=== PATIENT | male | born 1990 | race American Indian/Alaskan Native ===

== ENCOUNTER 2016-09-20 12:43 | Emergency (ER) | payer SELFPAY ==
[2016-09-20 13:04] VITALS: BP 122/77
[2016-09-20] MEDS: MOTRIN PO ONE (14:18)
--- NOTE | 2016-09-20 18:48 | Emergency Department Report ---
Entered by PATRICIA NAPIER, acting as scribe for LENA KEITH NP. ED ENT HPI - General Chief complaint: Dental/Oral Stated complaint: TOOTHACHE /FACE SWOLLEN Time Seen by Provider: 09/20/16 13:19 Source: patient Mode of arrival: Ambulatory Limitations: No Limitations - History of Present Illness Initial comments: This is a 25 y/o male, nontoxic, well nourished in appearance, no acute signs of distress presents with toothache that began 3 days ago and became worse today. Associated symptoms include pain and slight swelling to left facial area and toothaches but he denies neck pain, fever, headache, stiff neck, n/v, CP, SOB, and chills. Pain is described as constant and 7/10 on a severity scale. Denies taking any OTC meds. No alleviating or aggravating factors. Allergic to sulfamethoxazole and trimethoprim. MD complaint: tooth pain Onset/Timin -: days(s) Location: L ear Severity: moderate Severity scale (0 -10): 7 Consistency: constant Improves with: none Worsens with: none Context- Dental: history of dental caries, other (broken tooth) Associated Symptoms: toothache, other (left side facial swelling and pain, no neck pain, no fever, no chills). denies: fever, cough, gum swelling, pain with swallowing, sore throat, tinnitus, hearing loss, discharge from ear, rhinorrhea - Related Data Previous Rx's Medication Instructions Recorded Last Taken Type Amoxicillin/K Clav Tab [Augmentin 1 tab PO Q12HR 10 Days 09/20/16 Unknown Rx 875 mg] Ibuprofen [Motrin 800 MG tab] 800 mg PO Q8HR PRN #20 tablet 09/20/16 Unknown Rx Allergies Allergy/AdvReac Type Severity Reaction Status Date / Time sulfamethoxazole Allergy Unknown Verified 09/20/16 13:04 [From ] trimethoprim [From ] Allergy Unknown Verified 09/20/16 13:04 ED Dental HPI - General Chief complaint: Dental/Oral Stated complaint: TOOTHACHE /FACE SWOLLEN Time Seen by Provider: 09/20/16 13:08 Source: patient Mode of arrival: Ambulatory Limitations: No Limitations - History of Present Illness MD complaint: tooth pain Onset/Timin -: days(s) Severity: moderate Consistency: constant Improves with: none Worsens with: none Context- Dental: other (broken tooth) Dental Associated Symptons: Yes: Earache - Related Data Previous Rx's Medication Instructions Recorded Last Taken Type Amoxicillin/K Clav Tab [Augmentin 1 tab PO Q12HR 10 Days 09/20/16 Unknown Rx 875 mg] Ibuprofen [Motrin 800 MG tab] 800 mg PO Q8HR PRN #20 tablet 09/20/16 Unknown Rx Allergies Allergy/AdvReac Type Severity Reaction Status Date / Time sulfamethoxazole Allergy Unknown Verified 09/20/16 13:04 [From ] trimethoprim [From ] Allergy Unknown Verified 09/20/16 13:04 ED Review of Systems Comment: All other systems reviewed and negative Constitutional: denies: chills, fever Eyes: denies: eye pain, eye discharge, vision change ENT: dental pain. denies: ear pain, throat pain, hearing loss, epistaxis, congestion Respiratory: denies: cough, shortness of breath, wheezing Cardiovascular: denies: chest pain, palpitations Endocrine: no symptoms reported Musculoskeletal: denies: other (neck pain) Skin: other (Swelling to left facial area ) ED Past Medical Hx - Past Medical History Previous Medical History?: No - Surgical History Past Surgical History?: No - Social History Smoking Status: Never Smoker Substance Use Type: None - Medications Home Medications: Home Medications Medication Instructions Recorded Confirmed Last Taken Type Amoxicillin/K Clav Tab [Augmentin 1 tab PO Q12HR 10 Days 09/20/16 Unknown Rx 875 mg] Ibuprofen [Motrin 800 MG tab] 800 mg PO Q8HR PRN #20 tablet 09/20/16 Unknown Rx ED Physical Exam - General Limitations: No Limitations General appearance: alert, in no apparent distress - Head Head exam: Present: atraumatic, normocephalic, normal inspection - Eye Eye exam: Present: normal appearance, PERRL, EOMI. Absent: scleral icterus, conjunctival injection, nystagmus, periorbital swelling, periorbital tenderness Pupils: Present: normal accommodation - ENT ENT exam: Present: normal exam, normal orophraynx, mucous membranes moist, TM's normal bilaterally, normal external ear exam - Expanded ENT Exam Expanded Mouth exam: Present: normal external inspection, tongue normal. Absent: drooling, trismus, muffled voice, tongue elevation, laceration Teeth exam: Present: dental caries (12), fractured tooth # (12), dental tenderness #, gingival enlargement. Absent: other (no pus, no drainage, no swelling, no abscess) 1 - Fractured Throat exam: Positive: normal inspection. Negative: tonsillar erythema, tonsillomegaly, tonsillar exudate, R peritonsillar mass, L peritonsillar mass - Neck Neck exam: Present: normal inspection, full ROM. Absent: tenderness, meningismus, lymphadenopathy, thyromegaly - Respiratory Respiratory exam: Present: normal lung sounds bilaterally. Absent: respiratory distress, wheezes, rales, rhonchi, stridor, chest wall tenderness, accessory muscle use, decreased breath sounds, prolonged expiratory - Cardiovascular Cardiovascular Exam: Present: regular rate, normal rhythm, normal heart sounds. Absent: bradycardia, tachycardia, irregular rhythm, systolic murmur, diastolic murmur, rubs, gallop - GI/Abdominal GI/Abdominal exam: Present: soft, normal bowel sounds. Absent: distended, tenderness, guarding, rebound, rigid, diminished bowel sounds - Rectal Rectal exam: Present: deferred - Extremities Exam Extremities exam: Present: normal inspection, full ROM, normal capillary refill. Absent: tenderness, pedal edema, joint swelling, calf tenderness - Back Exam Back exam: Present: normal inspection, full ROM. Absent: tenderness, CVA tenderness (R), CVA tenderness (L), muscle spasm, paraspinal tenderness, vertebral tenderness, rash noted - Neurological Exam Neurological exam: Present: alert, oriented X3, CN II-XII intact, normal gait - Psychiatric Psychiatric exam: Present: normal affect, normal mood - Skin Skin exam: Present: warm, dry, intact, normal color. Absent: rash ED Course Vital Signs 09/20/16 13:00 Temperature 99.2 F Pulse Rate 85 Respiratory 17 Rate Blood Pressure 122/77 O2 Sat by Pulse 99 Oximetry ED Medical Decision Making - Medical Decision Making Ed course: This is a 25-year-old male that presents with dental caries and gingivitis. 1- after my physical exam, patient received Augmentin 875 mg for 10 days and was instructed to follow-up with a dentist in 24 hours. 2- at time time of discharge, the patient does not seem toxic or ill in appearance. No acute signs of distress noted. Patient agrees to discharge treatment plan of care. No further questions noted by the patient. ED Disposition Clinical Impression: Dental caries, Gingivitis Disposition: DC- TO HOME OR SELFCARE Is pt being admited?: No Does the pt Need Aspirin: No Condition: Stable Instructions: Dental Caries (ED), Gingivitis (ED), Amoxicillin/Clavulanate Potassium (By mouth), Ibuprofen (By mouth) Additional Instructions: Take full course of antibiotics as prescribed. Follow-up with a dentist in 24 hours. Prescriptions: Amoxicillin/K Clav Tab [Augmentin 875 mg] 1 tab PO Q12HR 10 Days Ibuprofen [Motrin 800 MG tab] 800 mg PO Q8HR PRN #20 tablet PRN Reason: Pain Referrals: PRIMARY CARE,MD [Primary Care Provider] - 3-5 Days [facility] [Outside] - 3-5 Days [facility] [Outside] - 24 Hours Forms: Work/School Release Form(ED) This documentation as recorded by the KARTHIKEYAN lozano ELIZABETH,accurately reflects the service I personally performed and the decisions made by ,LENA KEITH, KELSIE.
== END 2016-09-20 14:24 | disposition home or self-care (01) ==
LOC: ED 12:43
DX: K02.9 Dental caries, unspecified (principal); K05.10 Chronic gingivitis, plaque induced
CPT/HCPCS: 99282

== ENCOUNTER 2016-10-03 17:35 | Emergency (ER) | payer SELFPAY ==
--- NOTE | 2016-10-03 19:39 | XRay Report ---
FINAL REPORT PROCEDURE: XR CHEST ROUTINE 2V TECHNIQUE: PA and lateral chest radiographs were obtained. CPT 40888 HISTORY: Chest pain. Cough. Shortness of breath. COMPARISON: No prior studies are available for comparison. FINDINGS: Heart: Normal. Mediastinum/Vessels: Normal. Lungs/Pleural space: Normal. Bony thorax: No acute osseous abnormality. Other: IMPRESSION: No radiographic evidence of acute cardiopulmonary disease.
--- NOTE | 2016-10-03 22:57 | Emergency Department Report ---
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 denies: fever, chills, myalgias, diaphoresis, headache, rhinorrhea, nasal congestion, sore throat, stiff neck, shortness of breath, abdominal pain, nausea, vomiting, diarrhea, dysuria, rash, confusion, right sweats, weight loss, epistaxis Treatments Prior to Arrival: none - Related Data Home Medications Medication Instructions Recorded Confirmed Last Taken No Known Home Medications [No 10/03/16 10/03/16 Unknown Reported Home Medications] Allergies Allergy/AdvReac Type Severity Reaction Status Date / Time sulfamethoxazole Allergy Unknown Verified 10/03/16 17:54 [From ] trimethoprim [From ] Allergy Unknown Verified 10/03/16 17:54 ED Review of Systems ROS: Stated complaint: CHEST PAIN AND DRY COUGH Other details as noted in HPI Comment: All other systems reviewed and negative Constitutional: no symptoms reported, see HPI Eyes: as per HPI. denies: eye pain ENT: as per HPI. denies: ear pain, throat pain Respiratory: no symptoms reported, see HPI, cough. denies: orthopnea Cardiovascular: as per HPI, chest pain (w cough). denies: palpitations, dyspnea on exertion, orthopnea Endocrine: no symptoms reported, see HPI Gastrointestinal: as per HPI. denies: abdominal pain, nausea, vomiting Genitourinary: as per HPI. denies: urgency, dysuria Musculoskeletal: as per HPI. denies: back pain Skin: as per HPI. denies: rash, lesions Neurological: as per HPI. denies: headache, weakness, vertigo Psychiatric: as per HPI, anxiety (concerned about cough bc he had pna in the past). denies: depression, auditory hallucinations, visual hallucinations, homicidal thoughts, suicidal thoughts Hematological/Lymphatic: as per HPI. denies: easy bleeding ED Past Medical Hx - Past Medical History Previous Medical History?: No Additional medical history: pna years ago. no other med prob. no meds. no cig /etho or drugs. mom and dad a/w - Surgical History Past Surgical History?: No - Social History Smoking Status: Never Smoker Substance Use Type: None - Medications Home Medications: Home Medications Medication Instructions Recorded Confirmed Last Taken Type No Known Home Medications [No 10/03/16 10/03/16 Unknown History Reported Home Medications] ED Physical Exam - General Limitations: No Limitations General appearance: alert, in no apparent distress, anxious (about cough) - Head Head exam: Present: atraumatic - Eye Eye exam: Present: normal appearance, PERRL - ENT ENT exam: Present: normal exam, mucous membranes moist. Absent: normal orophraynx (post nasal drip), mucous membranes dry, TM's normal bilaterally ( red b, no buldging retraction or effusion, no ear pain) - Neck Neck exam: Present: normal inspection. Absent: tenderness, meningismus - Respiratory Respiratory exam: Present: normal lung sounds bilaterally. Absent: respiratory distress, wheezes, rales, rhonchi, stridor - Cardiovascular Cardiovascular Exam: Present: regular rate, normal rhythm, normal heart sounds. Absent: bradycardia, tachycardia, irregular rhythm, systolic murmur, diastolic murmur, rubs, gallop, clicks, JVD, S3, S4 - GI/Abdominal GI/Abdominal exam: Present: soft - Rectal Rectal exam: Present: deferred - Extremities Exam Extremities exam: Present: normal inspection, full ROM, normal capillary refill. Absent: tenderness, pedal edema, joint swelling, calf tenderness - Back Exam Back exam: Present: normal inspection, full ROM. Absent: tenderness, CVA tenderness (R), CVA tenderness (L), muscle spasm - Neurological Exam Neurological exam: Present: alert, altered, oriented X3, CN II-XII intact, normal gait, reflexes normal. Absent: abnormal gait, motor sensory deficit ED Course Vital Signs 10/03/16 17:49 Temperature 98.4 F Pulse Rate 82 Respiratory 16 Rate Blood Pressure 107/66 O2 Sat by Pulse 100 Oximetry - Reevaluation(s) Reevaluation #1: 10/03/16 22:59 pt to er w cough he states in front they made it into cp he says cp only when he coughs cough worse when he lays down he was worried bc he had pna before pmh none psh none meds none mom and dad a/w no exposure no hiv / no ssd non productive no fever non ill appearing non septic appearing hr n bp n sat 100 on ra ambulatory tm red b uvula w post nasal drip lungs cta no indication for anbx discussed w pt his cough and plan of care he has been informed what to monitor for and he will do so and follow up with pcp Wednesday. ED Medical Decision Making - EKG Data -: EKG Interpreted by Me EKG shows normal: sinus rhythm Rate: normal - EKG Data Interpretation: no acute changes, normal EKG - Radiology Data Radiology results: report reviewed, image reviewed - Medical Decision Making see note vss nad no fever non toxic appearing young male - Differential Diagnosis cough with or wo infectious source Critical care attestation.: If time is entered above; I have spent that time in minutes in the direct care of this critically ill patient, excluding procedure time. ED Disposition Clinical Impression: Post-nasal drip, Cough Disposition: TO HOME OR SELFCARE Is pt being admited?: No Does the pt Need Aspirin: No Condition: Good Instructions: Sinusitis (ED) Additional Instructions: rest fluids over the counter flonase for post nasal drip monitor for green drainage or fever humification of room may help good handwashing when around public follow up pcp as we discussed Referrals: PRIMARY MD LEIGH [Primary Care Provider] - 3-5 Days JOHN DAN MD [Staff Physician] - 3-5 Days
[2016-10-03 23:04] VITALS: BP 101/65
== END 2016-10-03 23:11 | disposition home or self-care (01) ==
LOC: ED 17:35
DX: R09.82 Postnasal drip (principal); R05 Cough; Z88.2 Allergy status to sulfonamides; Z88.8 Allergy status to other drugs, medicaments and biological substances
CPT/HCPCS: 71020; 93005; 93010